=== PATIENT | female | born 1995 | race Caucasian/White ===

== ENCOUNTER 2017-06-16 13:54 | Emergency (ER) | payer OTHER ==
[2017-06-16 14:09] VITALS: BP 105/62; PULSE 64; TEMP 97.9; BMI 19.2
[2017-06-16] MEDS ORDERED: SODIUM CHLORIDE 1,000 ML IV STA (14:42)
--- NOTE | 2017-06-16 14:50 | PDOC ---
History of Present Illness - General Chief Complaint: Weakness Stated Complaint: weakness,hypotension Time Seen by Provider: 06/16/17 14:33 History Source: Patient - History of Present Illness Associated Symptoms: reports: weakness. denies: cough, fever/chills, nausea/ vomiting, shortness of breath Past History - Past Medical History Allergies/Adverse Reactions: Allergies Allergy/AdvReac Type Severity Reaction Status Date / Time peanut Allergy Verified 06/16/17 14:10 pollen extracts Allergy Verified 06/16/17 14:10 Home Medications: Ambulatory Orders NK [No Known Home Medication] 04/04/16 Asthma: Yes Cardiac Disorders: Yes (heart murmur,ARRYTHMIA) COPD: No Disorders: Yes (FREQUENT UTI) - Immunization History Immunization Up to Date: Yes - Suicide/Smoking/Psychosocial Hx Smoking Status: No Smoking History: Never smoked Have you smoked in the past 12 months: No Number of Cigarettes Smoked Daily: 0 Information on smoking cessation initiated: No Hx Alcohol Use: No Drug/Substance Use Hx: No Substance Use Type: None Review of Systems - Review of Systems Constitutional: No: Chills, Fever HEENTM: Yes: Nose Pain, Nose Congestion. No: Nose Bleeding ABD/GI: No: Nausea, Vomiting *Physical Exam - Vital Signs Last Vital Signs Temp Pulse Resp BP Pulse Ox 97.9 F 64 18 105/62 100 06/16/17 14:06 06/16/17 14:06 06/16/17 14:06 06/16/17 14:06 06/16/17 14:06 - Physical Exam General Appearance: Yes: Appropriately Dressed. No: Apparent Distress HEENT: positive: Normal Voice, Other (dressing in place to nasal area, no obvious epistaxis or e/o infxn) Neck: positive: Supple. negative: Lymphadenopathy (R), Lymphadenopathy (L) Respiratory/Chest: negative: Respiratory Distress Integumentary: positive: Dry, Warm Neurologic: positive: Fully Oriented, Alert, Normal Mood/Affect ED Treatment Course - LABORATORY CBC & Chemistry Diagram: 06/16/17 15:23 06/16/17 15:23 Medical Decision Making - Medical Decision Making 06/16/17 14:42 21-year-old female, history of asthma, status post rhinoplasty 06/13 and now here with complaint that she has not been able to eat since her surgery 2/2 "soreness" to nasal area upon chewing. States this a.m. she became dizzy and almost passed out. No increased pain to nose or epistaxis. Given percocet but prefers to take tylenol because she does not like the way percocet make her feel. Denies any fever, chills, nausea or vomiting. Pt stable in ED in NAD with moist mucous membranes, dressing in place to nasal area. Symptoms most likely dehydration secondary to decreased po intake. Will check FS, check labs for electrolytes and administer IV fluids. Contacted patient's surgeon, Dr De La Vega, who is affiliated w/ [facility] ([phone]), agrees w/ IVF. States patient should maintain adequate hydration including Gatorade at home and should keep her follow-up appointment with him next Monday06/16/17 16:07 FS 93. Pt given juice in ED. CBC wnl. Chem pending. Pt improved w/ IVF. Anticipate discharge 06/16/17 16:39 Calcium 7.9. Case discussed with Dr. Schroeder who states no indication for IV calcium in ED. Patient can replete electrolytes with diet. Rest of labs unremarkable. Patient reports feeling better at this time. Had lengthy conversation including modifying diet to soft diet until nasal discomfort improves. Told to also include milk and cheese given low calcium and to follow- up with her ENT as scheduled next Monday to repeat blood work *DC/Admit/Observation/Transfer Diagnosis at time of Disposition: Dehydration - Discharge Dispostion Disposition: HOME Condition at time of disposition: Improved - Referrals - Patient Instructions Printed Discharge Instructions: DI for Dehydration -- Adult Additional Instructions: Your labs reveal that your calcium was mildly low at 7.9. This is possibly due to current dehydration state. Calcium can be found in foods such as milk, cheese, yogurt and Broccoli Modify diet to a soft diet until your discomfort has improved. Soft diet includes yogurt, applesauce, etc. Maintain adequate hydration with water and Gatorade. If symptoms worsen, return to ED, otherwise follow-up with your ENT surgeon on Monday and have MD repeat your calcium level - Post Discharge Activity Forms/Work/School Notes: Back to Work
[2017-06-16 15:36] LABS: BASO % 0.1 % (0-2.0); EOS % 0.1 % (0-4.5); HEMATOCRIT 38.8 % (32.4-45.2); HEMOGLOBIN 13.1 GM/dL (10.7-15.3); LYMPH % 9.8 % (8-40); MCH 29.1 pg (25.7-33.7); MCHC 33.7 g/dl (32.0-36.0); MEAN CELL VOLUME 86.4 fl (80-96); MONO % 12.5 % (3.8-10.2); NEUT % 77.5 % (42.8-82.8); PLATELET COUNT 208 K/MM3 (134-434); RBC 4.49 M/mm3 (3.60-5.2); RDW 12.3 % (11.6-15.6); WHITE BLOOD COUNT 7.4 K/mm3 (4.0-10.0)
[2017-06-16 16:08] LABS: ALK PHOS 48 U/L (45-117); ANION GAP 9 (8-16); BILIRUBIN,TOTAL 0.5 mg/dL (0.2-1.0); BLOOD UREA NITROGEN 12 mg/dL (7-18); CALCIUM 7.9 mg/dL (8.5-10.1); CHLORIDE 105 mmol/L (98-107); CO2 26 mmol/L (21-32); CREATININE 0.5 mg/dL (0.55-1.02); GLUCOSE,RANDOM 81 mg/dL (74-106); POTASSIUM 4.2 mmol/L (3.5-5.1); SGOT/AST 21 U/L (15-37); SGPT/ALT 21 U/L (12-78); SODIUM 140 mmol/L (136-145)
== END 2017-06-16 17:23 | disposition home or self-care (01) ==
LOC: JER 13:54
PROC: 3E0337Z Introduction of Electrolytic and Water Balance Substance into Peripheral Vein, Percutaneous Approach (ICD-10-PCS; principal; 2017-06-16)
DX: E83.51 Hypocalcemia (principal); Z98.890 Other specified postprocedural states
CPT/HCPCS: 36415; 80053; 82962; 85025; 99281-25

== ENCOUNTER 2020-05-13 01:14 | Emergency (ER) | payer OTHER ==
[2020-05-13 01:30] VITALS: BP 130/83; PULSE 86; TEMP 98.3; BMI 21.9
[2020-05-13 02:19] LABS: URINE APPEARANCE Clear; URINE BILIRUBIN Negative (NEGATIVE); URINE COLOR Yellow; URINE GLUCOSE (UA) Negative (NEGATIVE); URINE KETONE 4+ (NEGATIVE); URINE LEUK ESTERASE Negative (NEGATIVE); URINE NITRITE Negative (NEGATIVE); URINE PROTEIN Negative (NEGATIVE); URINE UROBILINOGEN 0.2 mg/dL (0.2-1.0)
[2020-05-13 02:37] LABS: BASO % 0.6 % (0-2.0); EOS % 0.4 % (0-4.5); HEMATOCRIT 36.7 % (32.4-45.2); HEMOGLOBIN 12.9 GM/dL (10.7-15.3); LYMPH % 20.3 % (8-40); MCH 29.7 pg (25.7-33.7); MCHC 35.1 g/dl (32.0-36.0); MEAN CELL VOLUME 84.5 fl (80-96); MEAN PLT VOLUME 7.4 fl (7.5-11.1); MONO % 8.1 % (3.8-10.2); NEUT % 70.6 % (42.8-82.8); PLATELET COUNT 266 K/MM3 (134-434); RBC 4.35 M/mm3 (3.60-5.2); RDW 12.2 % (11.6-15.6); WHITE BLOOD COUNT 10.3 K/mm3 (4.0-10.0)
[2020-05-13 02:50] LABS: EPI CELLS 13 /uL (0-25.1); HYALINE CASTS 2 /uL (0-3.1); URINE BACTERIA 74 /uL (0-1359); URINE RBC 23 /uL (0-23.9); URINE WBC 13 /uL (0-25.8)
[2020-05-13 02:52] LABS: CALCIUM 9.1 mg/dL (8.5-10.1)
[2020-05-13 02:53] LABS: ALBUMIN 3.7 g/dl (3.4-5.0); BLOOD UREA NITROGEN 5.2 mg/dL (7-18)
[2020-05-13 02:56] LABS: BILIRUBIN,TOTAL 0.4 mg/dL (0.2-1); CREATININE 0.4 mg/dL (0.55-1.3)
== END 2020-05-13 03:18 | disposition home or self-care (01) ==
LOC: JER 01:14
PROC: 3E033GC Introduction of Other Therapeutic Substance into Peripheral Vein, Percutaneous Approach (ICD-10-PCS; principal; 2020-05-13)
DX: O21.9 Vomiting of pregnancy, unspecified (principal); Z3A.10 10 weeks gestation of pregnancy
CPT/HCPCS: 36415; 80053; 81003; 84702; 85025; 87077; 87086; 99284-25

== ENCOUNTER 2020-11-30 07:50 | Inpatient (IN) | payer OTHER ==
[2020-11-30] MEDS ORDERED: CITRIC ACID/SODIUM CITRATE 30 ML UNIT-DOSE CUP PO ONE (08:25)
[2020-11-30] MEDS ORDERED: ELECTROLYTE-148 SOLN 1,000 ML IV SCH (08:30)
[2020-11-30 09:51] VITALS: BMI 24.7
[2020-11-30] MEDS ORDERED: morphine SULFATE/PF 0.5 MG/ML (2cc Syringe - QUVA) ONE (09:59)
[2020-11-30] MEDS ORDERED: PROPOFOL 20 ML ONE (10:02)
[2020-11-30] MEDS ORDERED: OXYTOCIN 10 UNITS/ML VIAL ONE (10:03)
[2020-11-30] MEDS ORDERED: KETOROLAC TROMETHAMINE 30 MG/1 ML VIAL ONE (10:03)
[2020-11-30] MEDS ORDERED: ONDANSETRON 4 MG/2 ML VIAL ONE (10:03)
[2020-11-30] MEDS ORDERED: PHENYLEPHRINE HCL 10 MG/1 ML SINGLE DOSE VIAL ONE (10:03)
[2020-11-30] MEDS ORDERED: ceFAZolin SODIUM 1 GM VIAL ONE (10:03)
[2020-11-30] MEDS ORDERED: morphine SULFATE/PF 0.5 MG/ML (2cc Syringe - QUVA) SPIN ONE (10:25)
[2020-11-30] MEDS ORDERED: ePHEDrine SULFATE 50 MG/1 ML AMPULE ONE (10:40)
[2020-11-30] MEDS ORDERED: oxyCODONE HCL 5 MG TABLET PO PRN ×2 (11:39)
[2020-11-30] MEDS ORDERED: METHYLERGONOVINE MALEATE 0.2 MG/1 ML AMP IM PRN (11:39)
[2020-11-30] MEDS ORDERED: ONDANSETRON 4 MG/2 ML VIAL IVPUSH PRN (11:50)
[2020-11-30] MEDS ORDERED: ACETAMINOPHEN 1000 MG/100 ML VIAL (NON FORMULARY) IVPB ONE (11:52)
[2020-11-30] MEDS ORDERED: LACTATED RINGERS SOLUTION 1,000 ML IV SCH (12:00)
[2020-11-30] MEDS ORDERED: OXYTOCIN 20 UNITS in 0.9% NS 20 UNIT/1,000 ML INFUS.BAG IV ONE (12:17)
[2020-11-30] MEDS: OXYTOCIN 20 UNITS in 0.9% NS 20 UNIT/1,000 ML INFUS.BAG IV SCH ×2 (12:20→21:47)
[2020-11-30 12:25] LABS: CORD HCO3 23.9 mmHg (20-29); CORD PCO2 63.1 mmHg (30-78); CORD pH 7.196 (7.14-7.44)
[2020-11-30 12:26] LABS: CORD BASE EXCESS -5.9 mmol/L (0-2); CORD HCO3 22.9 mmHg (20-29); CORD PCO2 56.3 mmHg (30-78); CORD pH 7.227 (7.14-7.44)
[2020-11-30] MEDS ORDERED: ACETAMINOPHEN INJECTION 100 ML IVPB ONE (12:48)
[2020-11-30] MEDS: IBUPROFEN 800 MG/8 ML IJ IVPB PRN (16:04)
[2020-12-01] MEDS: IBUPROFEN 800 MG/8 ML IJ IVPB PRN (01:15)
[2020-12-01] MEDS: OXYTOCIN 20 UNITS in 0.9% NS 20 UNIT/1,000 ML INFUS.BAG IV SCH ×2 (06:13→19:47)
[2020-12-01 07:55] LABS: BASO % 0.3 % (0-2.0); EOS % 0.6 % (0-4.5); HEMATOCRIT 29.4 % (32.4-45.2); HEMOGLOBIN 10.2 GM/dL (10.7-15.3); LYMPH % 16.7 % (8-40); MCH 29.1 pg (25.7-33.7); MCHC 34.6 g/dl (32.0-36.0); MEAN CELL VOLUME 83.9 fl (80-96); MEAN PLT VOLUME 8.4 fl (7.5-11.1); MONO % 7.9 % (3.8-10.2); NEUT % 74.5 % (42.8-82.8); PLATELET COUNT 146 10^3/uL (134-434); RDW 14.1 % (11.6-15.6); WHITE BLOOD COUNT 10.2 K/mm3 (4.0-10.0)
[2020-12-01] MEDS: IBUPROFEN 600 MG TABLET (FP) PO PRN ×3 (08:02→22:54)
[2020-12-01] MEDS: ACETAMINOPHEN 325 MG TABLET (FP) PO PRN ×3 (08:03→22:54)
[2020-12-01] MEDS: PRENATAL VITAMINS W/ FOLIC ACID TABLET (FP) PO SCH (09:22)
[2020-12-01] MEDS ORDERED: BISACODYL 10 MG SUPP.RECT RC PRN (11:39)
[2020-12-01] MEDS: SIMETHICONE 80 MG TAB.CHEW (FP) PO PRN ×2 (14:56→22:53)
[2020-12-02] MEDS: ACETAMINOPHEN 650 MG/20.3 ML ORAL SOLUTION (CUPS) PO PRN ×3 (08:07→22:25)
[2020-12-02] MEDS: IBUPROFEN 100 MG/5 ML UNIT DOSE CUPS PO PRN ×3 (08:08→22:25)
[2020-12-02] MEDS: PRENATAL VITAMINS W/ FOLIC ACID TABLET (FP) PO SCH (10:16)
[2020-12-03] MEDS: IBUPROFEN 100 MG/5 ML UNIT DOSE CUPS PO PRN (07:47)
[2020-12-03] MEDS: ACETAMINOPHEN 650 MG/20.3 ML ORAL SOLUTION (CUPS) PO PRN (07:48)
[2020-12-03 09:20] LABS: BASO % 0.3 % (0-2.0); EOS % 2.4 % (0-4.5); HEMATOCRIT 32.3 % (32.4-45.2); LYMPH % 21.7 % (8-40); MCH 28.7 pg (25.7-33.7); MCHC 34.1 g/dl (32.0-36.0); MEAN CELL VOLUME 84.1 fl (80-96); MEAN PLT VOLUME 7.6 fl (7.5-11.1); MONO % 6.4 % (3.8-10.2); NEUT % 69.2 % (42.8-82.8); PLATELET COUNT 275 10^3/uL (134-434); RBC 3.84 M/mm3 (3.60-5.2); RDW 14.3 % (11.6-15.6); WHITE BLOOD COUNT 10.7 K/mm3 (4.0-10.0)
[2020-12-03 10:30] VITALS: BP 113/76; PULSE 72; TEMP 98.2
[2020-12-03] MEDS: PRENATAL VITAMINS W/ FOLIC ACID TABLET (FP) PO SCH (10:56)
== END 2020-12-03 13:15 | disposition home or self-care (01) | DRG 785 ==
LOC: JLDR 07:50 → J3W 13:50
PROVIDERS: ADMIT Obstetrics & Gynecology; ATTEND Obstetrics & Gynecology
PROC: 10D00Z1 Extraction of Products of Conception, Low, Open Approach (ICD-10-PCS; principal; 2020-11-30)
PROC: 0UL70ZZ Occlusion of Bilateral Fallopian Tubes, Open Approach (ICD-10-PCS; 2020-11-30)
DX: O82 Encounter for cesarean delivery without indication (principal); Z3A.39 39 weeks gestation of pregnancy; Z37.0 Single live birth; Z30.2 Encounter for sterilization
CPT/HCPCS: 36415; 36600; 82803; 85025; 88302-TC; 88307-TC; J0131